=== PATIENT | female | born 1990 | race Caucasian/White ===

== ENCOUNTER 2018-07-22 06:50 | Inpatient (IN) | payer BC ==
[2018-07-22] VITALS (11 sets, daily range): BP systolic 121–138; BP diastolic 67–80; PULSE 89–104; TEMP 97.8–99.4
[~2018-07-22] VITALS: Ht 175.4 cm; Wt 109.1 kg
[~2018-07-22 06:50] MED LIST: EQUALINE PRENATAL PO; GLUCOPHAGE500 MG/TAB PO; MOTRIN 800800 MG/TAB PO; NATURAL MAGNES200 MG PO; PERCOCET 325 MG1 TA2 PO; ZANTAC 150MG T150 MG PO
--- NOTE | 2018-07-22 10:00 | NUR ---
Patient presents to unit for repeat . Spouse accompanies, assesment completed, labs obtained and iv infusing. Patient tolerated well. Patient fully prepped for surgery. Will continue to monitor.
[2018-07-22 10:54] LABS: BASO % 0.2 % (0.0-2.0); EOS % 0.2 % (0-4.0); GRAN % 71.7 % (42.2-75.2); HEMATOCRIT 41.3 % (37.0-47.0); HEMOGLOBIN 13.6 g/dl (12.5-16.0); LYMPH # 0.9 (1.2-3.4); LYMPH % 16.6 % (20.0-51.0); MEAN CELL VOLUME 84 fl (80.0-100.0); MEAN CORPUSCULAR HEMOGLOBIN 28 pg (27.0-31.0); MEAN CORPUSCULAR HGB CONC 33 g/dl (33.0-37.0); MEAN PLATELET VOLUME 12.7 fl (7.4-10.4); MONO # 0.6 (0.1-0.6); MONO % 10.9 % (1.7-9.3); PLATELET COUNT 128 K/mm3 (130-400); RED BLOOD COUNT 4.91 M/mm3 (4.10-5.30); REDCELL DISTRIBUTION WIDTH-CV 16.3 % (11.5-14.5)
--- NOTE | 2018-07-22 18:30 | NUR ---
Post recovery vitals were entered after completetion, noted to not save. Vitals were monitored during course of recovery and noted within normal limits, unable to obtain previous record of vitals. Bleeding noted within normal range post administration of cytotec and methergine. Fundal massage was noted q 15minutes to q30 minutes, with abdominal binder within place at this time, double nurse check in regards to fundal massage was completed with assistance of charge nurse for monitoring, weight of pads was obtained and reported to physician, as indicated in previous physician notification. 1600- report was given to Silvia Mccauley RN for continuation of care. Patient resting comfortably in bed.
[2018-07-23 00:01] VITALS: BP 128/78; PULSE 89; TEMP 98.1
[2018-07-23 03:30] VITALS: BP 128/78; PULSE 90; TEMP 98.4
[2018-07-23 07:00] LABS: BASO % 0.1 % (0.0-2.0); EOS % 0.5 % (0-4.0); GRAN # 5.7 (1.4-6.5); GRAN % 70.7 % (42.2-75.2); LYMPH # 1.1 (1.2-3.4); LYMPH % 13.4 % (20.0-51.0); MEAN CELL VOLUME 86 fl (80.0-100.0); MEAN CORPUSCULAR HGB CONC 33 g/dl (33.0-37.0); MEAN PLATELET VOLUME 12.2 fl (7.4-10.4); MONO # 1.2 (0.1-0.6); MONO % 14.9 % (1.7-9.3); PLATELET COUNT 101 K/mm3 (130-400); RED BLOOD COUNT 3.89 M/mm3 (4.10-5.30); REDCELL DISTRIBUTION WIDTH-CV 16.4 % (11.5-14.5)
[2018-07-23 07:16] LABS: HEMATOCRIT 33.4 % (37.0-47.0); HEMOGLOBIN 10.9 g/dl (12.5-16.0); MEAN CORPUSCULAR HEMOGLOBIN 28 pg (27.0-31.0)
[2018-07-23 07:50] VITALS: BP 100/62; PULSE 82; TEMP 98.4
--- NOTE | 2018-07-23 10:56 | NUR ---
Initial visit; Parents thanked Trauma Coordinator for offering congratulations and God's blessings for the of their son. Trauma Coordinator thanked them for choosing [facility].
--- NOTE | 2018-07-23 11:53 | NUR ---
9532 PT FEEDING INFNAT AND DENIES NEEDS
[2018-07-23] MEDS ORDERED: IBU600 MG PO (12:25)
[2018-07-23] MEDS ORDERED: PERCOCET 325 MG1 TA2 PO (12:25)
[2018-07-23 20:00] VITALS: BP 132/67; PULSE 74; TEMP 97.9
[2018-07-24 08:18] VITALS: BP 122/64; PULSE 92; TEMP 97.9
== END 2018-07-24 12:30 | disposition home or self-care (01) | DRG 787 ==
LOC: OB 06:50
PROVIDERS: ADMIT Obstetrics & Gynecology
PROC: 10D00Z1 Extraction of Products of Conception, Low, Open Approach (ICD-10-PCS; principal; 2018-07-22)
DX: O34.211 Maternal care for low transverse scar from previous cesarean delivery (principal); O99.12 Other diseases of the blood and blood-forming organs and certain disorders involving the immune mechanism complicating childbirth; Z3A.41 41 weeks gestation of pregnancy; Z37.0 Single live birth; O36.63X0 Maternal care for excessive fetal growth, third trimester, not applicable or unspecified; D69.59 Other secondary thrombocytopenia
CPT/HCPCS: J0690; J1885; J2210; J2370; J2405; J2590; J3010; J7120